=== PATIENT | male | born 1990 | race African-American/Black ===

== ENCOUNTER 2019-05-15 16:14 | Emergency (ER) | payer MEDICAID, OTHER ==
[2019-05-15 16:27] VITALS: BP 123/81
[2019-05-15] MEDS ORDERED: TETRACAINE HCL 0.5% OPH SOLN 4 ML OD ONE (16:27)
--- NOTE | 2019-05-15 16:28 | ER Document Report ---
ED Medical Screen (RME) - General Chief Complaint: Foreign Body in Eye Stated Complaint: PIECE OF METAL IN RIGHT EYE Time Seen by Provider: 05/15/19 16:24 Primary Care Provider: CYNTHIA ARCINIEGA MD [Primary Care Provider] - Follow up as needed Mode of Arrival: Ambulatory Information source: Patient Notes: Patient presents to the emergency department with complaints of metal in his right eye. Reports he was working with nails without goggles in place flicked in his eye. Reports he has irrigated the eye without relief of symptoms. Denies vision problems but reports a lot of pain. He is not wearing contacts. I have greeted and performed a rapid initial assessment of this patient. A comprehensive ED assessment and evaluation of the patient, analysis of test results and completion of the medical decision making process will be conducted by additional ED providers. Dictation of this chart was performed using voice recognition software; therefore, there may be some unintended grammatical errors. - Related Data Allergies/Adverse Reactions: No Known Allergies Allergy (Unverified 05/15/19 16:23) Past Medical History - Social History Chew tobacco use (# tins/day): No Frequency of alcohol use: None Drug Abuse: None Physical Exam - Vital signs Vitals: Temp Pulse Resp BP Pulse Ox 98.0 F 58 L 18 123/81 100 05/15/19 16:21 05/15/19 16:21 05/15/19 16:21 05/15/19 16:21 05/15/19 16:21 Course - Vital Signs Vital signs: Temp Pulse Resp BP Pulse Ox 98.0 F 58 L 18 123/81 100 05/15/19 16:21 05/15/19 16:21 05/15/19 16:21 05/15/19 16:21 05/15/19 16:21 Doctor's Discharge - Discharge Referrals: CYNTHIA ARCINIEGA MD [Primary Care Provider] - Follow up as needed
--- NOTE | 2019-05-15 18:00 | ER Document Report ---
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 States that pain is worse with blinking denies any blurred vision at this time. - Related Data Allergies/Adverse Reactions: No Known Allergies Allergy (Unverified 05/15/19 16:23) Past Medical History - General Information source: Patient - Social History Smoking Status: Never Smoker Chew tobacco use (# tins/day): No Frequency of alcohol use: None Drug Abuse: None Family History: Reviewed & Not Pertinent Patient has suicidal ideation: No Patient has homicidal ideation: No Review of Systems - Review of Systems Constitutional: No symptoms reported EENT: See HPI Cardiovascular: No symptoms reported Respiratory: No symptoms reported Gastrointestinal: No symptoms reported Genitourinary: No symptoms reported Male Genitourinary: No symptoms reported Musculoskeletal: No symptoms reported Skin: No symptoms reported Hematologic/Lymphatic: No symptoms reported Neurological/Psychological: No symptoms reported Physical Exam - Vital signs Vitals: Temp Pulse Resp BP Pulse Ox 98.0 F 58 L 18 123/81 100 05/15/19 16:21 05/15/19 16:21 05/15/19 16:21 05/15/19 16:21 05/15/19 16:21 - General General appearance: Appears well, Alert - HEENT Head: Normocephalic, Atraumatic Eyes: Other - Was lamp shows a small less than 1 mm dot illuminates with floor seen on medial aspect approximately 9:00 on cornea.. No: Periorbital ecchymosis, Periorbital edema Conjunctiva: No: Purulent discharge Course - Re-evaluation Re-evalutation: 05/15/19 17:56 Patient was provided tetracaine and then 30 cc of normal saline was used. He had small dot that appears to be a small corneal abrasion. After delusion of the eye he no longer feels discomfort with blinking. 05/15/19 18:01 Jethro case with [facility] on-call, CT orbit, will provide erythromycin ointment 9 contact user for small corneal abrasion and patient states that he will go to the [facility] tomorrow for more detailed examination. 05/15/19 20:23 ED does not show any identifiable foreign body. As discussed prior will provide erythromycin ointment and follow-up with ophthalmology tomorrow. - Vital Signs Vital signs: Temp Pulse Resp BP Pulse Ox 98.0 F 58 L 18 123/81 100 05/15/19 16:21 05/15/19 16:21 05/15/19 16:21 05/15/19 16:21 05/15/19 16:21 Discharge - Discharge Clinical Impression: Corneal abrasion, right Qualifiers: Encounter type: initial encounter Qualified Code(s): S05.01XA - Injury of conjunctiva and corneal abrasion without foreign body, right eye, initial encounter Condition: Good Disposition: HOME, SELF-CARE Prescriptions: Erythromycin Base [Erythromycin Oph 1 gm Oint Ud] 1 applic OP ASDIR PRN #1 tube PRN Reason: Referrals: SUDARSHAN BOLAÑOS DO [ACTIVE STAFF] - Follow up tomorrow (Wellness Assistant expecting your call in the morning to fit you in for examination tomorrow.)
--- NOTE | 2019-05-15 19:36 | RADIOLOGY REPORT (SQ) ---
EXAM DESCRIPTION: CT ORBIT/SELLA WITHOUT COMPLETED DATE/TIME: 05/15/2019 7:24 pm REASON FOR STUDY: eval for foreign body COMPARISON: None. TECHNIQUE: Noncontrasted images through the orbits windowed for bone and soft tissue. Additional co vj and sagittal reconstructed images reviewed. All images stored on PACS. All CT scanners at this facility use dose modulation, iterative reconstruction, and/or weight based d osing when appropriate to reduce radiation dose to as low as reasonably achievable (ALARA). [facility]: Dose Right [facility]: CareDose [facility]: Dose Right [facility]: Teradose 4D [facility]: Smart [facility] RADIATION DOSE: CT Rad equipment meets quality standard of care and radiation dose reduction techniq ues were employed. CTDIvol: 30.4 mGy. DLP: 585 mGy-cm. mGy. LIMITATIONS: None. FINDINGS: FACIAL BONES: No fracture or bone lesion. ORBITS: Intact. No fracture. Symmetric intact globes and retroorbital soft tissues. No radiopaque foreign object visualized. PARANASAL SINUSES: Clear. No significant mucosal thickening, mass or fluid. No nasal polyps. Maxilla ry sinus outlets are patent. SOFT TISSUES: No mass or edema. INFERIOR BRAIN: Limited view. No acute findings. OTHER: No other significant finding. IMPRESSION: NO ACUTE FINDINGS. NO RADIOPAQUE FOREIGN OBJECT VISUALIZED. TECHNICAL DOCUMENTATION: JOB ID: [id number] Quality ID # [id number]: Final reports with documentation of one or more dose reduction techniques (e.g., Au tomated exposure control, adjustment of the mA and/or kV according to patient size, use of iterative reconstruction technique) 2010 [employer]- All Rights Reserved Reading location - IP/workstation name: [email or web address]
[2019-05-15] MEDS ORDERED: ERYTHROMYCIN 0.5% OPH OINT 1 GM UNIT DOSE OD ONE (20:24)
[2019-05-15] MEDS ORDERED: NAPROXEN 250 MG TABLET PO ONE (20:36)
== END 2019-05-15 20:44 | disposition home or self-care (01) ==
LOC: ER 16:14
DX: S05.01XA Injury of conjunctiva and corneal abrasion without foreign body, right eye, initial encounter (principal); W22.8XXA Striking against or struck by other objects, initial encounter
CPT/HCPCS: 99283; 70480; J3490